=== PATIENT | female | born 1995 | race Caucasian/White ===

== ENCOUNTER 2016-10-24 13:58 | Emergency (ER) | payer OTHER | END 2016-10-24 16:35 | disposition home or self-care (01) | LOC: FER 13:58 | DX: S06.0X0A Concussion without loss of consciousness, initial encounter (principal); S50.312A Abrasion of left elbow, initial encounter; S80.812A Abrasion, left lower leg, initial encounter; V47.5XXA Car driver injured in collision with fixed or stationary object in traffic accident, initial encounter; Y92.410 Unspecified street and highway as the place of occurrence of the external cause | CPT/HCPCS: 73080; 73502; 73590; 99284 ==